=== PATIENT | female | born 1945 | race Caucasian/White ===

== ENCOUNTER 2024-12-09 04:46 | Emergency (ER) | payer MEDICARE, SELFPAY ==
[2024-12-09 04:46] VITALS: BP 150/90; PULSE 77; O2SAT 97
[2024-12-09 04:52] VITALS: BMI 25.1
[2024-12-09 04:53] VITALS: BP 170/91; PULSE 73; RESP 20; TEMP 36.5; O2SAT 98
--- NOTE | 2024-12-09 05:22 | ECG_ITS ---
Test Reason : abd pain Blood Pressure : */* mmHG Vent. Rate : 68 BPM Atrial Rate : 68 BPM P-R Int : 194 ms QRS Dur : 90 ms QT Int : 442 ms P-R-T Axes : 18 -35 -8 degrees QTcB Int : 469 ms Normal sinus rhythm Left axis deviation Cannot rule out Anterior infarct , age undetermined Abnormal ECG No previous ECGs available Referred By: Annabella Mccann Electronically Signed By: JONNY HENNING MD
--- NOTE | 2024-12-09 05:24 | ED_ITS ---
HPI - Nausea/Vomiting/Diarrhea General Chief complaint: Nausea/Vomiting/Diarrhea Stated complaint: Stomach pain and Diarrhea Time Seen by Provider: 12/09/24 05:11 Source: patient and EMS Mode of arrival: EMS Limitations: no limitations History of Present Illness ED Provider: Dr. Annabella Mccann HPI Narrative: Patient comes to the emergency room complaining of nausea vomiting and diarrhea that started a proximally 15 hours ago. Patient states that she is visiting her granddaughter, staying at a hotel. Patient has had multiple episodes of nausea and vomiting, now only dry heaving, has been attempting to keep hydrated with small sips of Gatorade. Patient now having watery diarrhea. Patient states that she has history of internal and external hemorrhoids, and now when she has bowel movements, there is blood in the stool. Patient denies any abdominal pain, denies his fever or chills, denies hematuria or dysuria. Related Data Previous Rx's ?Medication ?Instructions ?Recorded loperamide 2 mg tablet 2 mg PO Q4H PRN loose stool #16 12/09/24 tabs ondansetron HCl 4 mg tablet 4 mg PO Q6H PRN nausea and 12/09/24 vomiting #14 tabs Allergies Allergy/AdvReac Type Severity Reaction Status Date / Time nitrofurantoin (From Allergy Angioedema Verified 12/09/24 04:57 Macrodantin) Review of Systems 2 Review of Systems: Constitutional : No Weight loss, No Fever, No Chills, No Night Sweats, No Fatigue, No Malaise ENT/Mouth : No Hearing loss, No Ear Pain, No Nasal Congestion, No Sinus Pain, No Hoarseness, No sore throat, No Rhinorrhea, No Swallowing Difficulty Eyes: No Eye Pain, No Swelling, No Redness, No Foreign Body, No Discharge, No Vision Changes Cardiovascular : No Chest Pain, No SOB, No Dyspnea on Exertion, No Orthopnea, No Edema, No Palpitations Respiratory : No Cough, No Sputum, No Wheezing, No Smoke Exposure, No Dyspnea Gastrointestinal : Complaining of nausea, dry heaving, vomiting, diarrhea, No Constipation, No abdominal Pain, No Hematochezia, No Melena Genitourinary : no irregular bleeding, No Dysuria, No Urinary Frequency, No Hematuria, No Urinary Incontinence, No Urgency, No Flank Pain, No Urinary Flow Changes, No Hesitancy Musculoskeletal : No joint pain, No Myalgias, No Joint Swelling Skin : No Skin Lesions, No rash Neuro : No Weakness, No Numbness, No Paresthesias, No Loss of Consciousness, No Dizziness, No Headache Psych : No Anxiety/Panic, No Depression, No SI/HI/AH/VH, No Social Issues, Heme/Lymph: No Bruising, No Bleeding,No Lymphadenopathy Endocrine : No Polyuria, No Polydipsia, No Temperature Intolerance [facility] Social History Social History Alcohol intake: current Alcohol type: wine Smoked in Last 30 Days: No Use of substances other than those prescribed or required for medical reasons: No Advance Directives: No Advance Directives Information Provided: No Physical Exam 2 Exam: Exam: Appearance: Alert. Oriented X3. No acute distress. Well-appearing Eyes: Pupils equal, round and reactive to light. ENT: Pharynx normal. Neck: Normal inspection. Neck supple. No lymph nodes noted. No crepitus CVS: Normal heart rate and rhythm. Pulses normal. Normal S1 and S2 Respiratory: No respiratory distress. Breath sounds normal. No Wheezing. No rales Abdomen: Soft and nontender. No rigidity. No distention. Skin: Skin warm and dry. Normal skin color. Normal skin turgor. Extremities: No lower extremity edema. No Lacerations. No Rash Neuro: Oriented X 3. No motor deficit. No sensory deficit. Moving all extremities. No slurred speech. CN 2 through 12 grossly intact Psych: calm, cooperative, normal affect Vital Signs: Vital Signs: Last Vital Signs Temp 98.0 F 12/09/24 08:20 Pulse 88 12/09/24 08:20 Resp 18 12/09/24 08:20 BP 132/79 12/09/24 08:20 Pulse Ox 95 12/09/24 08:20 O2 Del Method Room Air 12/09/24 08:20 BMI result Body Mass Index 25.1 Course Course Course Narrative: Patient reports multiple episodes of nausea vomiting diarrhea, complaining of history of bleeding internal hemorrhoids, denies any abdominal pain. Patient reports that she has had multiple colonoscopies, all normal, patient states that the last time she had a Cologuard which was negative Patient receiving lactated Ringer's, IV Zofran, morphine, p.o. loperamide All of patient's labs pending Physical exam is fairly benign, the pain to palpation in any of the quadrants in the abdomen Medications Administered Discontinued Medications Generic Name Dose Route Start Last Admin Trade Name Mannyq PRN Reason Stop Dose Admin Lactated Ringer's 1,000 mls @ 999 mls/hr 12/09/24 05:30 12/09/24 06:51 Lr IV 12/09/24 06:30 Infused .Q1H1M KEZIA Infusion Magnesium Sulfate 2 gm in 50 mls @ 150 mls/hr 12/09/24 05:58 12/09/24 06:51 Magnesium Sulfate/H2o IV 12/09/24 06:17 Infused ONCE ONE Infusion Loperamide HCl 4 mg 12/09/24 05:22 12/09/24 05:48 Loperamide Hcl 2 Mg Capsule PO 12/09/24 05:23 4 mg ONCE ONE Administration Morphine Sulfate 1 mg 12/09/24 05:22 12/09/24 05:49 Morphine Sulfate 4 Mg/Ml Cartridge IVPUSH 12/09/24 05:23 1 mg ONCE ONE Administration Protocol Ondansetron HCl 4 mg 12/09/24 05:22 12/09/24 05:49 Ondansetron Hcl 4 Mg/2 Ml Vial IVPUSH 12/09/24 05:23 4 mg ONCE ONE Administration Potassium Chloride 60 meq 12/09/24 05:58 12/09/24 06:15 Potassium Chloride Packet 20 Meq Packet PO 12/09/24 05:59 60 meq ONCE ONE Administration Medical Decision Making Medical Decision Making [facility] Narrative: My interpretation of EKG: Normal sinus rhythm, heart rate 68, no ST segment depression or elevation, nonspecific T-wave inversion in lead 3, QTC 469 My interpretation of labs: No significant abnormality in patient's hematology. Chemistry, patient has hyponatremia, hypokalemia, hypomagnesemia. Patient receiving IV fluids, p.o. potassium and IV magnesium. No significant abnormality in patient's lipase or LFTs. Patient's serology negative for influenza and COVID In the ED, patient has not had any episodes of diarrhea after the above- mentioned medication. Repeat chemistry. Sign-out given to my colleague Dr. Garcia 09:51 Date: 12/09/24 Provider: Checo Garcia MD The patient's repeat potassium was normal at 3.8. Repeat magnesium was normal at 2.0. The patient did get improvement murmur 1st dose of Imodium but states she feels like she is going to have recurrence of her diarrhea. The patient was given another dose of Imodium 4 mg orally. Patient was discharged home with printed and verbal instructions. Differential Diagnosis Differential Diagnoses: The differential diagnosis associated with the presentation includes (Gastritis, gastroenteritis, viral illness) Admission/Observation Consideration of admission/observation: Escalation of care including admission/observation considered (Given patient's age and symptoms, observation was considered) Lab Data MDM Lab Attestation statement: I reviewed the patient's lab results. 12/09/24 05:28 12/09/24 08:06 Labs: Lab Results 12/09/24 12/09/24 12/09/24 Range/Units 05:24 05:28 08:06 WBC 6.6 (4.8-10.8) X10*3/uL RBC 4.12 L (4.20-5.50) X10*6/uL Hgb 12.3 (12.0-16.0) g/dl Hct 34.9 L (37.0-47.0) % MCV 84.7 (80.0-98.0) fL MCH 29.9 (27.0-33.0) pg MCHC 35.2 H (31.0-35.0) g/dl RDW 12.0 (11.0-16.0) % Plt Count 329 (160-400) X10*3/uL MPV 9.4 (9.4-12.3) fL Immature Gran % (Auto) 0.3 (0.0-0.4) % Neut % (Auto) 75.2 H (45-73) % Lymph % (Auto) 15.4 L (20-40) % [place] % (Auto) 8.3 (2-11) % Eos % (Auto) 0.3 (0-4) % Baso % (Auto) 0.5 (0-2) % Lymph # (Auto) 1.0 L (1.2-4.9) X10*3/uL [place] # (Auto) 0.6 (0.1-1.2) X10*3/uL Eos # (Auto) 0.0 (0.0-0.4) X10*3/uL Baso # (Auto) 0.0 (0.0-0.2) X10*3/uL Abs Immat Gran (auto) 0.02 (0.00-0.03) X10*3/uL Absolute Neuts (auto) 5.0 (2.0-8.3) x10*3/uL Absolute Nucleated RBC 0.000 (0.0-0.012) X10*3/uL Nucleated RBC % (auto) 0.0 (0.0-0.2) /100WBC Sodium 131 L 130 L (135-145) mmol/L Potassium 2.8 L* 3.8 D (3.3-5.1) mmol/L Chloride 94 L 99 (96-108) mmol/L Carbon Dioxide 24 22 (22-29) mmol/L Anion Gap 16 13 (12-20) BUN 8 L 7 L (9-16) mg/dL Creatinine 0.74 0.64 (0.5-1.4) mg/dL Estim Creat Clear Calc 55.2 63.8 Estimated GFR > 60 > 60 Random Glucose 126 H 112 (60-115) mg/dL Calcium 9.7 9.4 (8.4-10.2) mg/dL Magnesium 1.3 L* 2.0 (1.6-2.6) mg/dL Total Bilirubin 0.7 (0.0-1.0) mg/dL Direct Bilirubin 0.2 (0.0-0.5) mg/dL AST 30 (5-31) U/L ALT 19 (0-31) U/L Alkaline Phosphatase 123 H (39-117) U/L Total Protein 7.3 (6.5-8.0) g/dL Albumin 4.8 (3.5-5.0) g/dL Lipase 36 (8-78) U/L Urine Color Urine Appearance Urine pH (5.0-9.0) Ur Specific [place] (1.005-1.025) Urine Protein (Neg-Trace) mg/dL Urine Glucose (UA) (Negative) mg/dL Urine Ketones (Negative) mg/dL Urine Blood (Negative) Urine Nitrite (Negative) Ur Leukocyte Esterase (Negative) COVID-19 ([facility]) Negative (Negative) COVID-19 Clin Com See Note Influenza Type A (ER[facility]) Negative (Negative) Influenza Type B (ERIC) Negative (Negative) Influenza A & B Note See Note 10/25/25 Range/Units 08:10 WBC (4.8-10.8) X10*3/uL RBC (4.20-5.50) X10*6/uL Hgb (12.0-16.0) g/dl Hct (37.0-47.0) % MCV (80.0-98.0) fL MCH (27.0-33.0) pg MCHC (31.0-35.0) g/dl RDW (11.0-16.0) % Plt Count (160-400) X10*3/uL MPV (9.4-12.3) fL Immature Gran % (Auto) (0.0-0.4) % Neut % (Auto) (45-73) % Lymph % (Auto) (20-40) % [place] % (Auto) (2-11) % Eos % (Auto) (0-4) % Baso % (Auto) (0-2) % Lymph # (Auto) (1.2-4.9) X10*3/uL [place] # (Auto) (0.1-1.2) X10*3/uL Eos # (Auto) (0.0-0.4) X10*3/uL Baso # (Auto) (0.0-0.2) X10*3/uL Abs Immat Gran (auto) (0.00-0.03) X10*3/uL Absolute Neuts (auto) (2.0-8.3) x10*3/uL Absolute Nucleated RBC (0.0-0.012) X10*3/uL Nucleated RBC % (auto) (0.0-0.2) /100WBC Sodium (135-145) mmol/L Potassium (3.3-5.1) mmol/L Chloride (96-108) mmol/L Carbon Dioxide (22-29) mmol/L Anion Gap (12-20) BUN (9-16) mg/dL Creatinine (0.5-1.4) mg/dL Estim Creat Clear Calc Estimated GFR Random Glucose (60-115) mg/dL Calcium (8.4-10.2) mg/dL Magnesium (1.6-2.6) mg/dL Total Bilirubin (0.0-1.0) mg/dL Direct Bilirubin (0.0-0.5) mg/dL AST (5-31) U/L ALT (0-31) U/L Alkaline Phosphatase (39-117) U/L Total Protein (6.5-8.0) g/dL Albumin (3.5-5.0) g/dL Lipase (8-78) U/L Urine Color Yellow Urine Appearance Clear Urine pH 8.0 (5.0-9.0) Ur Specific [place] <= 1.005 (1.005-1.025) Urine Protein Negative (Neg-Trace) mg/dL Urine Glucose (UA) Negative (Negative) mg/dL Urine Ketones Negative (Negative) mg/dL Urine Blood Negative (Negative) Urine Nitrite Negative (Negative) Ur Leukocyte Esterase Negative (Negative) COVID-19 ([facility]) (Negative) COVID-19 Clin Com Influenza Type A ([facility]) (Negative) Influenza Type B ([facility]IC) (Negative) Influenza A & B Note Discharge Plan Discharge Clinical Impression: Nausea vomiting and diarrhea, Hypokalemia, Hypomagnesemia Patient Disposition: Home, Self-Care Instructions: Potassium Content of Foods List (ED), Hypokalemia (ED), Acute Nausea and Vomiting (ED), Acute Diarrhea (ED), Hypomagnesemia (ED) Additional Instructions: Your blood work did reveal a low magnesium and a low potassium. This was due to the severe diarrhea that you had. Your blood work was otherwise unremarkable. Your COVID-19 and influenza tests were negative. For the next 24 hours, stay on a ALAN diet (bananas, rice, applesauce, tea and toast). Then advance your diet as tolerated. For diarrhea I want you to take Imodium 2 mg pills. ?Take 2 pills after the 1st loose, diarrheal stool then 1 pill after each loose, diarrheal stool up to 8 pills per day. ?This usually stops diarrhea within 24 hours. In the emergency department we gave you Imodium 2 mg pills, 4 mg and a another 4 mg dose for a total of 4 pills so far today. Watch for concerning signs such as fever, chills, nausea, vomiting, abdominal pain, weakness, severe diarrhea that is not controlled by Imodium. If you get any these signs you should go to an emergency department your you were follow up with your doctor. Follow-up with your doctor in 2 days. Please return to the emergency department if your symptoms get worse or if you develop any symptoms that are concerning to you. Prescriptions: New loperamide 2 mg tablet 2 mg PO Q4H PRN (Reason: loose stool) Qty: 16 0RF Rx Instructions: administer after each loose stool until symptoms controlled; do not exceed 8 mg per 24 hrs ondansetron HCl 4 mg tablet 4 mg PO Q6H PRN (Reason: nausea and vomiting) Qty: 14 0RF Print Language: Qatari
[2024-12-09 05:36] LABS: MANUAL DIFF FLAG NO
[2024-12-09 05:37] LABS: Hematocrit 34.9 % (37.0-47.0); Hemoglobin 12.3 g/dl (12.0-16.0); Imm Gran Abs Auto 0.02 X10*3/uL (0.00-0.03); Imm Gran Pct Auto 0.3 % (0.0-0.4); Lymphocytes Absolute Auto 1.0 X10*3/uL (1.2-4.9); Mean Corpuscular HGB Conc 35.2 g/dl (31.0-35.0); Mean Corpuscular Hemoglobin 29.9 pg (27.0-33.0); Mean Corpuscular Volume 84.7 fL (80.0-98.0); NRBC Abs Auto 0.000 X10*3/uL (0.0-0.012); NRBC Pct Auto 0.0 /100WBC (0.0-0.2); Platelet Count 329 X10*3/uL (160-400); Red Blood Count 4.12 X10*6/uL (4.20-5.50); White Blood Count 6.6 X10*3/uL (4.8-10.8)
[2024-12-09 05:48] LABS: COVID-19 Test Negative (Negative); IDNOW Serial# 55D5AD1C; IDNOW Serial# 58CA691E; Influenza B2 Negative (Negative)
[2024-12-09] MEDS: Lactated Ringers 1,000 ML 999 ML IV (05:48)
--- OUTSIDE RECORDS SUMMARY | 2024-12-09 05:56 | XMS_ITS | Clinical Summary ---
Author Organization [facility] Address [address] [place] [address] Phone Care Team Providers Care Manager Investigations Name Role Phone Marissa Anthony MD Primary Care Provider Allergies Active Allergy Reactions Criticality Noted Date Comments Javier Inhibitors 08/26/2021 Nitrofurantoin Macrocrystal 08/27/19 22 Monosodium Glutamate Medium 05/12/2022 Amlodipine 08/26/2021 Medications chlorthalidone (HYGROTON) 25 mg tablet 04/07/2022 Active metoprolol succinate (TOPROL-XL) 100 mg 24 hr tablet 03/28/2022 Act renato losartan (COZAAR) 100 mg tablet 04/03/2022 Active atorvastatin (LIPITOR) 20 mg tablet Take 1 tablet (20 mg total) by mouth at bedtime. 02/11/2022 Active famotidine (PEPCID) 20 mg tablet Take 1 tablet (20 mg total) by mouth 2 (two) times a day. 01/28/2022 Active gabapentin (NEURONTIN) 100 mg capsule 04/03/2022 Active hydroCHLOROthiaz gatito (HYDRODIURIL) 25 mg tablet Take 1 tablet (25 mg total) by mouth 1 (one) time each day. 10/21/2021 Active meclizine (ANTIVERT) 25 mg tablet Take 1 tablet (25 mg total) by mouth 3 (three) times a day if needed for dizziness. Active Resolved Problems Problem Noted Date Diagnosed Date Resolved Date Benign paroxysmal positional vertigo 08/26/2021 08/26/2021 Surgical History Surgery Date Site/Laterality Comments ROTATOR CUFF REPAIR 11/15/1974 - 12/15/1974 Dr. Rishabh Mckeon TUBAL LIGATION 10/16/1974 - 11/14/1974 Dr. Darian Patterson UMBILICAL HERNIA REPAIR 12/16/1974 - 01/14/1975 Dr. 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[place] psoriasis, rheumatoid arthritis History of blood transfusion x1 Arthritis GERD (gastroesophageal reflux disease) Sepsis ([facility] V24, [facility] V28) 2021 [facility] Gastric ulcer causing GI Bleed Social History Tobacco Use Types Packs/Day Years Used Date Smoking Tobacco: Former Cigarettes Q uit: 1975 Smokeless Tobacco: Never Tobacco Cessation:Counseling Given: Not Answered Alcohol Use Standard Drinks/Week Comments Yes 2 (1 standard drink = 0.6 oz pur e alcohol) Comments Unknown Sex and Gender Information Value Date Recorded Sex Assigned at Not on file Legal Sex Female 10:36 AM EDT Gender Identity Not on file Sexual Orientation Not on file Obstetrics History Last Filed Vital Signs Vital Sign Reading Time Taken Comments Blood Pressure 130/72 08/14/2022 11:41 AM EDT Pulse 55 08/14/2022 11:41 AM EDT Temperature - - Respiratory Rate 18 08/14/2022 11:41 AM EDT Oxygen Saturation 97% 08/14/2022 11:41 AM EDT Inhaled Oxygen Concentration - - Weight 56.7 kg (125 lb) 08/14/2022 11:41 AM EDT Height 157.5 cm (5' 2 ) 08/14/2022 11:41 AM EDT Body Mass Index 22.86 08/14/2022 11:41 AM EDT Plan of Treatment Health Maintenance Due Date Last Done Comments DTaP,Tdap,and Td Vaccines (1 - Tdap) 1966 Pneumococcal Vaccine: 50+ Years (1 of 1 - PCV) 1997 Zoster Vaccines (1 of 2) 1997 Falls Risk Assessment 07/11/2021 Hepatitis C Screening 07/11/2021 Medicare Annual Wellness Visit 07/11/2021 Osteoporosis Screening (Bone Density Screening) 07/11/2021 Social Influencers of Health Screening 07/11/2021 RSV Immunization Adult Patients (1 - 1-dose 75+ series) 2022 Depression Screening 02/16/2024 COVID-19 Vaccine ( season) 2024 10/26/2021, 11/11/2020, 03/22/2020, Additional history exists Influenza Vaccine (#1) 2024 2, 10/28/2020, 01/28/2019, Additional history exists Colorectal Cancer Screening: Colonoscopy Discontinued 08/22/2009 Colorectal Cancer Screening: FIT-DNA (Cologuard) Discontinued 08/06/2021, 08/06/2021 HIB Vaccines Aged Out No longer eligi ble based on patient's age to complete this topic HPV Vaccines Aged Out No longer eligi ble based on patient's age to complete this topic Hepatitis A Vaccines Aged Out No long er eligible based on patient's age to complete this topic Hepatitis B Vaccines Aged Out No long er eligible based on patient's age to complete this topic IPV Vaccines Aged Out No longer eligi ble based on patient's age to complete this topic MMR Vaccines Aged Out No longer eligi ble based on patient's age to complete this topic Meningococcal ACWY Vaccine Aged Out N o longer eligible based on patient's age to complete this topic Meningococcal B Vaccine Aged Out No l onger eligible based on patient's age to complete this topic RSV Immunization Patients Under 20 months Aged Out No longer eligible based on patient's age to complete this topic Varicella Vaccines Aged Out No longer eligible based on patient's age to complete this topic Procedures Procedure Name Priority Date/Time Associated Diagnosis Comments EXTERNAL COLONOSCOPY REPORT 08/22/2009 from Last 3 Months or Most Recently Relevant to Health Maintenance Results * EXTERNAL COLONOSCOPY REPORT (08/22/2009) Anatomical Region Laterality Modality Endoscopy Provider [facility]~PROCEDURE ORDERABLES Final Result from Last 3 Months or Most Recently Relevant to Health Maintenance [place] [address] [facility] [employer] MEDICARE ADVANTAGE Care Teams Manager Investigations Relationship Specialty Start Date End Date Marissa Anthony MD [address] [place] [address] PCP - General Family Medicine 07/11/21
--- OUTSIDE RECORDS SUMMARY | 2024-12-09 05:56 | XMS_ITS | Clinical Summary ---
Author Organization [facility] Address [address] [place] [address] Phone Care Team Providers Care Burner Hand Name Role Phone Marissa Anthony MD Primary Care Provider Allergies Active Allergy Reactions Criticality Noted Date Comments Javier Inhibitors Angioedema High 03/28/2024 Medications atorvastatin (Lipitor) 20 MG tablet Take 20 mg by mouth daily at bedtime. Active chlorthalidone (Hygroton) 25 MG tablet Take 25 mg by mouth in the morning. Active EPINEPHrine (Epipen) 0.3 MG/0.3ML injection syringe Inject 1 Syringe as directed 1 (one) time. 11/05/2023 Active famotidine (Pepcid) 20 MG tablet Take 20 mg by mouth in the morning and 20 mg before bedtime. Active gabapentin (Neurontin) 100 MG capsule Take 200 mg by mouth in the morning. 03/23/2024 Active losartan (Cozaar) 100 MG tablet Take 100 mg by mouth in the morning. Active meclizine (Antivert) 25 MG tablet Take 25 mg by mouth 3 (three) times a day as needed. Active metoprolol succinate XL (Toprol-XL) 100 MG 24 hr tablet Take 100 mg by mouth in the morning. Active omeprazole (PriLOSEC) [address] capsule Take 1 capsule by mouth once daily. 03/01/2024 Active ondansetron (Zofran) 4 MG tablet Take 4 mg by mouth every 8 (eight) hours if needed. 03/27/2024 Active predniSONE (Deltasone) 10 MG tablet Take 10 mg by mouth if needed. 02/12/2024 Active Sodium Fluoride 5000 Enamel 1.1-5 % dental gel Apply 1 inch to teeth in the morning and 1 inch before bedtime. 11/07/2023 Active Active Problems No known active problems Social History Tobacco Use Types Packs/Day Years Used Date Smoking Tobacco: Never Assessed Comments Unknown Sex and Gender Information Value Date Recorded Sex Assigned at Not on file Legal Sex Female 7:08 PM EST Gender Identity Not on file Sexual Orientation Not on file Last Filed Vital Signs Vital Sign Reading Time Taken Comments Blood Pressure 156/84 03/28/2024 1:03 PM EST Pulse 88 03/28/2024 1:03 PM EST Temperature 36.3 C (97.3 F) 03/28/2024 11:39 AM EST Respiratory Rate 16 03/28/2024 1:03 PM EST Oxygen Saturation 97% 03/28/2024 1:03 PM EST Inhaled Oxygen Concentration - - Weight 60.8 kg (134 lb) 03/28/2024 9:56 AM EST Height 157.5 cm (5' 2 ) 03/28/2024 9:56 AM EST Body Mass Index 24.51 03/28/2024 9:56 AM EST Plan of Treatment Health Maintenance Due Date Last Done Comments Bone Density Scan 1945 Medicare Initial Physical (IPPE) 1945 TD Vaccine (21+ Years) 1945 Hepatitis C Screening 1965 Pneumococcal Vaccine: 50+ Years (1 of 1 - PCV) 1997 Zoster Vaccines (1 of 2) 1997 Influenza Vaccine (#1) 2024 2, 10/28/2020, 01/28/2019, Additional history exists HIB Vaccines Aged Out No longer eligi [...] patient's age to complete this topic Meningococcal Vaccine Aged Out No zhen jonel eligible based on patient's age to complete this topic Rotavirus Vaccines Aged Out No longer eligible based on patient's age to complete this topic Insurance [employer] MEDICARE MANAGED Care Teams Burner Hand Relationship Specialty Start Date End Date Marissa Anthony MD [address] [place] [address] PCP - General 03/27/24
[2024-12-09 05:59] LABS: Alanine Aminotransferase 19 U/L (0-31); Albumin Level 4.8 g/dL (3.5-5.0); Alkaline Phosphatase 123 U/L (39-117); Anion Gap 16 (12-20); Aspartate Amino Transferase 30 U/L (5-31); Blood Urea Nitrogen 8 mg/dL (9-16); Calcium 9.7 mg/dL (8.4-10.2); Carbon Dioxide 24 mmol/L (22-29); Chloride 94 mmol/L (96-108); Creatinine Clr Calc Pharmacy 55.2; Estimated Glomerular Filt Rate > 60; Lipase 36 U/L (8-78); Magnesium 1.3 mg/dL (1.6-2.6); Potassium 2.8 mmol/L (3.3-5.1); Sodium 131 mmol/L (135-145); Total Protein 7.3 g/dL (6.5-8.0)
[2024-12-09] MEDS: Potassium Chloride Packet 20 MEQ PACKET 60 MEQ PO (06:15)
[2024-12-09] MEDS: Magnesium Sulfate/H2O 2 GM/50 ML PIGGYBACK IV (06:15)
--- NOTE | 2024-12-09 06:34 | PC.NURSE ---
pt tolerated PO potassium well.
[2024-12-09 08:19] LABS: Appearance Urine Clear; Glucose Urine UA Negative (Negative); PH 8.0 (5.0-9.0); Specific Gravity - Urine <= 1.005 (1.005-1.025)
[2024-12-09 08:20] VITALS: BP 132/79; PULSE 88; RESP 18; TEMP 36.7; O2SAT 95
[2024-12-09 08:31] LABS: Blood Urea Nitrogen 7 mg/dL (9-16); Calcium 9.4 mg/dL (8.4-10.2); Creatinine Clr Calc Pharmacy 63.8; Estimated Glomerular Filt Rate > 60; Magnesium 2.0 mg/dL (1.6-2.6)
[2024-12-09 08:52] LABS: Anion Gap 13 (12-20); Carbon Dioxide 22 mmol/L (22-29); Chloride 99 mmol/L (96-108); Potassium 3.8 mmol/L (3.3-5.1); Sodium 130 mmol/L (135-145)
--- NOTE | 2024-12-09 09:17 | PC.NURSE ---
No active vomiting since this RN arrival. Eager to go home. moist mm. skin pwd.
[2024-12-09 10:00] VITALS: BP 132/79; PULSE 88; RESP 18; TEMP 36.7; O2SAT 95
[2024-12-09 10:19] VITALS: BP 132/79; PULSE 88; RESP 18; TEMP 36.7; O2SAT 95
== END 2024-12-09 10:21 | disposition home or self-care (01) ==
PROVIDERS: Emergency Medicine; Emergency Provider Emergency Medicine Emergency Medical Services
DX: R11.2 Nausea with vomiting, unspecified (principal); R19.7 Diarrhea, unspecified; E87.6 Hypokalemia; E83.42 Hypomagnesemia; R10.9 Unspecified abdominal pain; Z03.818 Encounter for observation for suspected exposure to other biological agents ruled out
CPT/HCPCS: 36415; 80048; 80076; 81003; 83690; 83735; 85025; 87502; 87635; 93005; 96365; 96375; 99285; J2270; J2405; J3475; J7120

== ENCOUNTER → 2024-12-09 05:22 | Outpatient (BNV) | payer MEDICARE, SELFPAY | PROVIDERS: Emergency Provider Emergency Medicine Emergency Medical Services; Visit Provider Internal Medicine Cardiovascular Disease | DX: R94.31 Abnormal electrocardiogram [ECG] [EKG] (principal); R10.9 Unspecified abdominal pain | CPT/HCPCS: 93010 ==